=== PATIENT | male | born 1970 | race Caucasian/White ===

== ENCOUNTER 2016-07-27 22:34 | Observation (INO) | payer MEDICARE, OTHER ==
[~2016-07-27] VITALS: Ht 177.8 cm; Wt 75.0 kg
[2016-07-27 22:39] VITALS: BP 112/62; PULSE 92; RESP 16; TEMP 97.6; O2SAT 100
[2016-07-27] MEDS ORDERED: VENL150T PO (22:47)
[2016-07-27] MEDS ORDERED: TRAZ50TA12 PO (22:47)
[2016-07-27] MEDS ORDERED: NITR1SUB3 SL (22:47)
[2016-07-27] MEDS ORDERED: ASPI81CH CHEW (22:47)
[2016-07-27] MEDS ORDERED: ATOR40TA16 PO (22:47)
[2016-07-27] MEDS ORDERED: CARV6.252 PO (22:47)
[2016-07-27] MEDS ORDERED: ALPR1TAB3 PO (22:47)
[2016-07-27] MEDS ORDERED: ISOS30TA3 PO (22:47)
[2016-07-27] MEDS ORDERED: LISI40TA PO (22:47)
[2016-07-27 22:52] VITALS: BP 112/62; O2SAT 98
--- NOTE | 2016-07-27 22:55 | RADRPT ---
EXAM DATE/TIME: 07/27/2016 22:53 [facility] COMPARISON: No previous studies available for comparison. INDICATIONS : Chest pain tonight. MEDICAL HISTORY : Cardiovascular disease. SURGICAL HISTORY : Coronary artery stent. ENCOUNTER: Initial ACUITY: 1 day PAIN SCORE: 10/10 LOCATION: Bilateral chest FINDINGS: A single view of the chest demonstrates the lungs to be symmetrically aerated without evidence of mas s, infiltrate or effusion. The cardiomediastinal contours are unremarkable. Osseous structures are intact. CONCLUSION: No acute disease. Pablo Li MD on July 27, 2016 at 22:53 Board Certified Radiologist. This report was verified electronically.
[2016-07-27 23:05] LABS: AUTOMATED NEUTROPHIL # 5.8 TH/MM3 (1.8-7.7); BASOPHIL # 0.1 TH/MM3 (0-0.2); BASOPHIL % 0.9 % (0.0-2.0); EOSINOPHIL # 0.3 TH/MM3 (0-0.4); EOSINOPHIL % 2.9 % (0.0-4.0); HEMATOCRIT 39.5 % (39.0-51.0); HEMO FLAGS DIFF FINAL; LYMPH % 29.5 % (9.0-44.0); MEAN CELL VOLUME 94.6 FL (80.0-100.0); MEAN CORPUSCULAR HEMOGLOBIN 31.7 PG (27.0-34.0); MEAN CORPUSCULAR HGB CONC 33.5 % (32.0-36.0); MONO % 9.3 % (0.0-8.0); NEUT % 57.4 % (16.0-70.0); PLATELET COUNT 263 TH/MM3 (150-450); RED BLOOD COUNT 4.18 MIL/MM3 (4.50-5.90); RED CELL DISTRIBUTION WIDTH 14.3 % (11.6-17.2)
[2016-07-27 23:20] LABS: APTT (PATIENT) 29.3 SEC (24.3-30.1); INTERNATIONAL NORMALIZED RATIO 0.9 RATIO; PROTHROMBIN TIME - PATIENT 10.1 SEC (9.8-11.6)
[2016-07-27 23:23] LABS: ANION GAP 9 MEQ/L (5-15); BICARBONATE 23.9 MEQ/L (21.0-32.0); BLOOD UREA NITROGEN 13 MG/DL (7-18); CHLORIDE 98 MEQ/L (98-107); GLOMERULAR FILTRATION RATE 59 ML/MIN (>89); MAGNESIUM 2.3 MG/DL (1.5-2.5); POTASSIUM 3.9 MEQ/L (3.5-5.1); SODIUM (NA) 131 MEQ/L (136-145)
[2016-07-27] MEDS ORDERED: ASPIRIN 81 MG CHEW TAB ONE (23:25)
[2016-07-27] MEDS ORDERED: MORPHINE SULFATE 4 MG/ML INJ IV PUSH ONE (23:30)
[2016-07-27 23:34] LABS: CREATINE KINASE 81 U/L (39-308)
--- NOTE | 2016-07-27 23:36 | PD ---
HPI Chief Complaint: Chest Pain Time Seen by Provider: 22:43 Travel History International Travel<30 days: No Contact w/Intl Traveler<30days: No Traveled to known affect area: No History of Present Illness HPI 46-year-old male came to the emergency room with history of left-sided chest pain for past hour and a half. Patient is from [place] visiting family here. He says he has had 5 stents in the past the last one being in 2012. He is supposed be on Eliquis but has not taken it in past 2 months since his insurance does not cover it. He has been taking aspirin however. Patient is also a smoker and continues to smoke. Patient describes the pain to be 12 out of 10 sharp on the left side of his chest radiating to the back. No associated shortness of breath or syncopal episode. His vital signs were within normal limit in triage. Patient also showed me his right hand at the 3 middle fingers that were her and accidentally. He has some blisters and says it hurts. PFSH Past Medical History Narrative Medical List of his past medical, surgical, social and family history is reviewed from the nursing note. Anxiety: Yes Depression: Yes Cardiac Catheterization: Yes (5 STENTS ) Cardiovascular Problems: Yes (ME WITH 5 STENTS ) High Cholesterol: Yes Diminished Hearing: No Hypertension: Yes Myocardial Infarction: Yes Influenza Vaccination: Yes Past Surgical History Tonsillectomy: Yes Social History Alcohol Use: Yes (TODAY ) Tobacco Use: Yes (1/2 PPD ) Substance Use: No Allergies-Medications (Allergen,Severity, Reaction): Coded Allergies: No Known Allergies (Unverified , 07/27/16) Comments No known drug allergies. Reported Meds & Prescriptions Reported Meds & Active Scripts Active Reported Lisinopril 40 Mg Tab 40 Mg PO DAILY Atorvastatin (Atorvastatin Calcium) 40 Mg Tab 40 Mg PO HS Isosorbide Mononitrate ER (Isosorbide Mononitrate) 30 Mg Emery 30 Mg PO DAILY Trazodone (Trazodone HCl) 50 Mg Tab 50 Mg PO HS Carvedilol 6.25 Mg Tab 6.25 Mg PO BID Venlafaxine ER 24 HR (Venlafaxine HCl) 150 Mg Tab 150 Mg PO DAILY Nitroglycerin SL (Nitroglycerin) 0.4 Mg Subl 0.4 Mg SL DIRECTED PRN ONE TABLET UNDER THE TONGUE NEEDED FOR CHEST PAIN, MAY REPEAT EVERY FIVE MINUTES FOR A TOTAL OF 3 DOSES OR CALL 911 IF NO RELIEF Aspirin 81 Mg Chew 81 Mg CHEW DAILY Alprazolam 1 Mg Tab 1 Mg PO Q6H PRN Narrative Medication List of his home medications reviewed from the nursing note. Review of Systems Except as stated in HPI: all other systems reviewed are Neg Physical Exam Narrative GENERAL: Awake, intoxicated, no obvious distress SKIN: Focused skin assessment warm/dry. Right hand dorsum off second third and fourth finger superficial second-degree burn HEAD: Atraumatic. Normocephalic. EYES: Pupils equal and round. No scleral icterus. No injection or drainage. ENT: No nasal bleeding or discharge. Mucous membranes pink and moist. NECK: Trachea midline. No JVD. CARDIOVASCULAR: Regular rate and rhythm. No murmur appreciated. RESPIRATORY: No accessory muscle use. Clear to auscultation. Breath sounds equal bilaterally. GASTROINTESTINAL: Abdomen soft, non-tender, nondistended. Hepatic and splenic margins not palpable. MUSCULOSKELETAL: No obvious deformities. No clubbing. No cyanosis. No edema. NEUROLOGICAL: Awake and mildly intoxicated. No obvious cranial nerve deficits. Motor grossly within normal limits. Slurred speech. PSYCHIATRIC: Appropriate mood and affect; insight and judgment normal. Data Data Last Documented VS Vital Signs Date Time Temp Pulse Resp B/P Pulse Ox O2 Delivery O2 Flow Rate FiO2 07/28/16 00:41 104 16 106/61 97 07/27/16 22:52 Room Air 07/27/16 22:39 97.6 Orders Electrocardiogram (07/27/16 22:43) Basic Metabolic Panel (Bmp) (07/27/16 22:43) Ckmb (Isoenzyme) Profile (07/27/16 22:43) Complete Blood Count With Diff (07/27/16 22:43) Magnesium (Mg) (07/27/16 22:43) Prothrombin Time / Inr (Pt) (07/27/16 22:43) Act Partial Throm Time (Ptt) (07/27/16 22:43) Troponin I (07/27/16 22:43) Chest, Single Ap (07/27/16 22:43) Ecg Monitoring (07/27/16 22:43) Bilateral Bp Monitoring (07/27/16 22:43) Iv Access Insert/Monitor (07/27/16 22:43) Oximetry (07/27/16 22:43) Oxygen Administration (07/27/16 22:43) Aspirin Chew (Aspirin Chew) (07/28/16 09:00) Morphine Inj (Morphine Inj) (07/27/16 23:30) Aspirin Chew (Aspirin Chew) (07/27/16 23:25) Alcohol (Ethanol) (07/27/16 23:33) Aspirin Chew (Aspirin Chew) (07/28/16 00:30) Bacitracin Oint (Baciguent Oint) (07/28/16 00:30) Admit Order (Ed Use Only) (07/28/16 01:06) Labs Laboratory Tests Test 07/27/16 22:53 White Blood Count 10.0 TH/MM3 Red Blood Count 4.18 MIL/MM3 Hemoglobin 13.2 GM/DL Hematocrit 39.5 % Mean Corpuscular Volume 94.6 FL Mean Corpuscular Hemoglobin 31.7 PG Mean Corpuscular Hemoglobin 33.5 % Concent Red Cell Distribution Width 14.3 % Platelet Count 263 TH/MM3 Mean Platelet Volume 7.2 FL Neutrophils (%) (Auto) 57.4 % Lymphocytes (%) (Auto) 29.5 % Monocytes (%) (Auto) 9.3 % Eosinophils (%) (Auto) 2.9 % Basophils (%) (Auto) 0.9 % Neutrophils # (Auto) 5.8 TH/MM3 Lymphocytes # (Auto) 3.0 TH/MM3 Monocytes # (Auto) 0.9 TH/MM3 Eosinophils # (Auto) 0.3 TH/MM3 Basophils # (Auto) 0.1 TH/MM3 CBC Comment DIFF FINAL Differential Comment Prothrombin Time 10.1 SEC Prothromb Time International 0.9 RATIO Ratio Activated Partial 29.3 SEC Thromboplast Time Sodium Level 131 MEQ/L Potassium Level 3.9 MEQ/L Chloride Level 98 MEQ/L Carbon Dioxide Level 23.9 MEQ/L Anion Gap 9 MEQ/L Blood Urea Nitrogen 13 MG/DL Creatinine 1.31 MG/DL Estimat Glomerular Filtration 59 ML/MIN Rate Random Glucose 78 MG/DL Calcium Level 8.4 MG/DL Magnesium Level 2.3 MG/DL Total Creatine Kinase 81 U/L Troponin I LESS THAN 0.02 NG/ML Ethyl Alcohol Level 178 MG/DL MDM Medical Decision Making Medical Screen Exam Complete: Yes Emergency Medical Condition: Yes Medical Record Reviewed: Yes Interpretation(s) twelve-lead EKG was reviewed by me. Normal sinus rhythm, normal axis, nonspecific ST-T wave changes. Heart rate of 87 bpm. Differential Diagnosis ACS, non-STEMI, nonspecific chest pain Narrative Course 1 AM blood test results are back. Troponin is negative and chest x-rays negative. Patient does have high blood alcohol level. I've asked the nurse to do a bacitracin dressing for his fingers. Patient was given 4 mg of morphine IV. Given his risk factors I would like to admit him to the chest pain center to be ruled out. Procedures EKG Prior to Arrival: No Diagnosis Primary Impression: Chest pain Qualified Code: R07.9 - Chest pain, unspecified type Additional Impressions: Second degree burn of hand Qualified Code: T23.201A - Second degree burn of hand, right, initial encounter Alcohol intoxication Qualified Code: F10.120 - Alcohol intoxication, uncomplicated Admitting Information Admitting Physician Requests: Observation Nisreen Torres MD Jul 27, 2016 23:36
[2016-07-28] VITALS (8 sets, daily range): BP systolic 92–124; BP diastolic 52–67; PULSE 70–104; RESP 14–20; TEMP 98.2; O2SAT 96–100
[2016-07-28] MEDS ORDERED: ASPIRIN 81 MG CHEW TAB CHEW ONE (00:30)
[2016-07-28] MEDS ORDERED: BACITRACIN TOP OINT 15 GM TUBE TOPICAL ONE (00:30)
[2016-07-28] MEDS ORDERED: SODIUM CHLORIDE 0.9% FLUSH 10 ML FLUSH IV FLUSH PRN (03:15)
[2016-07-28] MEDS ORDERED: NITROGLYCERIN 0.4 MG SL 25 TABS/BTL SL PRN (03:15)
[2016-07-28] MEDS ORDERED: ACETAMINOPHEN 500 MG CPLT PO PRN (03:15)
[2016-07-28 04:01] LABS: CREATINE KINASE 61 U/L (39-308)
[2016-07-28 07:34] LABS: CREATINE KINASE 65 U/L (39-308)
--- NOTE | 2016-07-28 08:28 | HHI.HP ---
HPI Primary Care Physician Non-Staff Chief Complaint Chest pain History of Present Illness 46-year-old male with past coronary artery disease including 2 [place] (2005 & 2012 ) and 5 cardiac stents presents to the emergency room for further evaluation of intermittent chest discomfort. Onset 3 days ago. Location left anterior chest with radiation to his left arm. Pain occurs with exertion and without exertion. Duration generally last 20 minutes. Associated symptoms diaphoresis and shortness of breath. No nausea. Nothing makes pain better or worse. No known precipitating or relieving factors. He continues to smoke. 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 Review of Systems General: No fatigue,weakness, fever, chills, or recent illness. Has been in his general state of health. Recently moved from [place], has not established with a primary PCP. HEENT: No [place], no nasal congestion or drainage CV: As stated above. No current chest pain or pressure. No palpitations, intermittent leg pain, or dizziness. RESP: No SOB, cough, wheeze, recent URI. GI: No nausea, vomiting, bowel changes, diarrhea, constipation, pain, or distention. : No dysuria, urgency, frequency EXT: No lower leg edema, no paraesthesias MS: Chronic bilateral knee pain. No change in ROM NEURO: No change in memory, dizziness, difficulty with balance, LOC, motor/ sensory deficits PSYCH: No anxiety, depression, or suicidal ideation SKIN: No rashes, no concerning lesions Past Family Social History Allergies: Coded Allergies: No Known Allergies (Unverified , 07/27/16) Past Medical History Coronary artery disease, [place] 2, cardiac stents 5, hypertension, hyperlipidemia , depression, anxiety Past Surgical History Tonsillectomy Reported Medications Active Reported Lisinopril 40 Mg Tab 40 Mg PO DAILY Atorvastatin (Atorvastatin Calcium) 40 Mg Tab 40 Mg PO HS Isosorbide Mononitrate ER (Isosorbide Mononitrate) 30 Mg Emery 30 Mg PO DAILY Trazodone (Trazodone HCl) 50 Mg Tab 50 Mg PO HS Carvedilol 6.25 Mg Tab 6.25 Mg PO BID Venlafaxine ER 24 HR (Venlafaxine HCl) 150 Mg Tab 150 Mg PO DAILY Nitroglycerin SL (Nitroglycerin) 0.4 Mg Subl 0.4 Mg SL DIRECTED PRN ONE TABLET UNDER THE TONGUE NEEDED FOR CHEST PAIN, MAY REPEAT EVERY FIVE MINUTES FOR A TOTAL OF 3 DOSES OR CALL 911 IF NO RELIEF Aspirin 81 Mg Chew 81 Mg CHEW DAILY Alprazolam 1 Mg Tab 1 Mg PO Q6H PRN Active Ordered Medications Current Medications Medications (Trade) Dose Ordered Sig/Galo Route Start Time Stop Time Status Last Admin (Tylenol) 500 mg Q4H PRN PO 07/28/16 03:15 (Nitrostat Sl) 0.4 mg Q5M PRN SL 07/28/16 03:15 Social History No known diabetes, hypertension, hyperlipidemia. Tobacco use one half pack daily for most of his adult life. Endorses occasional alcohol. Denies illegal drug use. He is sedentary. Past cardiac testing No recent cardiac testing. Last cardiac catheterization in 2012. Patient does not have stent cards with him. Physical Exam Vital Signs Vital Signs Date Time Temp Pulse Resp B/P Pulse Ox O2 Delivery O2 Flow Rate FiO2 07/28/16 08:15 78 14 105/60 97 Room Air 07/28/16 06:42 70 16 92/52 98 07/28/16 04:28 96 16 105/65 96 07/28/16 03:56 97 21 07/28/16 02:40 80 14 106/53 100 07/28/16 00:41 104 16 106/61 97 07/27/16 22:52 98 Room Air 07/27/16 22:52 97 Room Air 07/27/16 22:52 112/62 07/27/16 22:39 97.6 92 16 112/62 100 Physical Exam GENERAL: Alert WN, WD, NAD, pleasant, male who appears older than stated age HEAD: NC, AT EYES: Sclera clear, conjunctiva without injection, pupils equal and round ENT: Mucous membranes pink and moist NECK: Supple, no masses, trachea midline CV: RRR, without murmur, rub, gallop, no JVD, S1-S2 no S3-S4. No carotid or femoral bruits RESP: Clear lungs throughout bilateral, prolonged expiratory phase, no crackles , wheeze, rhonchi, symmetrical chest rise, nonlabored, able to speak in full sentences ABD: Soft, NT, ND, no masses, positive bowel tones EXT: Pulses +24, no dependent edema MS: Normal tone 4 extremities, nontender, no obvious deformities, full range of motion NEURO: CN II through CN XII grossly intact, motor strength 5/5, gait WNL PSYCH: A+O 3, pleasant affect, appropriate speech, appropriate mood and affect , insight and judgment SKIN: Normal turgor, normal texture, no lesions, no rashes, brisk cap refill, even hair distribution Laboratory Laboratory Tests Test 07/27/16 07/28/16 07/28/16 22:53 03:20 06:20 White Blood Count 10.0 Red Blood Count 4.18 Hemoglobin 13.2 Hematocrit 39.5 Mean Corpuscular Volume 94.6 Mean Corpuscular Hemoglobin 31.7 Mean Corpuscular Hemoglobin 33.5 Concent Red Cell Distribution Width 14.3 Platelet Count 263 Mean Platelet Volume 7.2 Neutrophils (%) (Auto) 57.4 Lymphocytes (%) (Auto) 29.5 Monocytes (%) (Auto) 9.3 Eosinophils (%) (Auto) 2.9 Basophils (%) (Auto) 0.9 Neutrophils # (Auto) 5.8 Lymphocytes # (Auto) 3.0 Monocytes # (Auto) 0.9 Eosinophils # (Auto) 0.3 Basophils # (Auto) 0.1 CBC Comment DIFF FINAL Differential Comment Prothrombin Time 10.1 Prothromb Time International 0.9 Ratio Activated Partial 29.3 Thromboplast Time Sodium Level 131 Potassium Level 3.9 Chloride Level 98 Carbon Dioxide Level 23.9 Anion Gap 9 Blood Urea Nitrogen 13 Creatinine 1.31 Estimat Glomerular Filtration 59 Rate Random Glucose 78 Calcium Level 8.4 Magnesium Level 2.3 Total Creatine Kinase 81 61 65 Troponin I LESS THAN 0.02 LESS THAN 0.02 LESS THAN 0.02 Ethyl Alcohol Level 178 Result Diagram: 07/27/16225207/27/162252 Imaging Last Impressions Chest X-Ray 07/27/162242 Signed Impressions: Service Date/Time: Wednesday, July 27, 2016 22:53 - CONCLUSION: No acute disease. Pablo Li MD Course EKGs 3 EKGs normal sinus rhythm, normal axis, no ST or T-segment changes Assessment and Plan Assessment and Plan #1 Chest painadmitted to chest pain center. Ruled out with 3 sets of EKGs, cardiac enzymes, and monitor throughout evening. Was seen and evaluated by Dr. Maxx Brown. Plan to complete an exercise stress test however patient declined saying he is unable to walk on treadmill therefore will order a chemical stress test. #2 CAD-continue isosorbide, carvedilol, and aspirin. In regards to his Effient , no need to restart as last stent placed in 2012. #3 Tobacco use-counseled and educated on effects of tobacco. Encouraged him to quit smoking. #4 Hypertensioncontinue lisinopril Alison Andujar Jul 28, 2016 08:28 Alison Andujar Jul 28, 2016 08:28
[2016-07-28] MEDS ORDERED: ASPIRIN 81 MG CHEW TAB CHEW SCH (09:00)
[2016-07-28] MEDS ORDERED: SODIUM CHLORIDE 0.9% FLUSH 10 ML FLUSH IV FLUSH SCH (09:00)
[2016-07-28] MEDS ORDERED: REGADENOSON INJ 0.4 MG/5 ML SYR ONE (11:32)
[2016-07-28] MEDS ORDERED: LISINOPRIL 20 MG TAB PO SCH (12:45)
[2016-07-28] MEDS ORDERED: VENLAFAXINE HCL XR 75 MG CAP PO SCH (13:00)
[2016-07-28] MEDS ORDERED: CARVEDILOL 6.25 MG TAB PO SCH (13:00)
[2016-07-28] MEDS ORDERED: ISOSORBIDE MONONITRATE 30 MG TAB PO SCH (13:00)
--- NOTE | 2016-07-28 15:06 | RADRPT ---
EXAM DATE/TIME: 07/28/2016 11:20 [facility] COMPARISON: No previous studies available for comparison. INDICATIONS : Angina. DOSE: 8.5 mCi Tc99m Myoview at stress. 27.3 mCi Tc99m Myoview at rest. 0.4 mg Lexiscan STRESS SYMPTOMS: Dyspnea and lightheaded. EJECTION FRACTION: > 70% MEDICAL HISTORY : Hypertension. Hypercholesterolemia. Myocardial infarction. SURGICAL HISTORY : Tonsillectomy. Angioplasty. ENCOUNTER: Initial ACUITY: 1 day PAIN SCALE: 2/10 LOCATION: Left chest TECHNIQUE: The patient underwent pharmacologic stress with infusion of prescribed dose. Continuous ECG tracing was monitored during stress. Gated SPECT imaging was performed after stress and conventional SPECT i maging was performed at rest. The examination was performed on a SPECT/CT scanner, both attenuation and non-corrected datasets were reviewed. FINDINGS: The best perfused myocardium is the lateral wall followed by the inferior wall. Moderate gut activity does obscure the inferior wall. There is normal wall motion with ejection fraction of greater than 70%. There is no redistribution t o suggest stress-induced ischemia. CONCLUSION: Negative for stress-induced ischemia. RISK CATEGORY: Low (<1% Annual Mortality Rate) Jairo Randolph MD FACR on July 28, 2016 at 14:59 Board Certified Radiologist. This report was verified electronically.
--- NOTE | 2016-07-28 15:16 | HHI.DCPOC ---
Discharge Care Plan Diagnosis: (1) Atypical chest pain (2) Hx of coronary artery disease Goals to Promote Your Health * To prevent worsening of your condition and complications * To maintain your health at the optimal level Directions to Meet Your Goals Take your medications as prescribed Follow your dietary instruction Follow activity as directed Keep your appointments as scheduled Take your immunizations and boosters as scheduled If your symptoms worsen call your PCP, if no PCP go to Urgent Care Center or Emergency Room Smoking is Dangerous to Your Health. Avoid second hand smoke Call the 24-hour hour crisis hotline for domestic abuse at Alison Andujar Jul 28, 2016 15:16
--- NOTE | 2016-07-28 16:55 | EKG ---
Date Performed: 07/28/2016 Time Performed: 06:23:44 PTAGE: 46 years EKG: Sinus rhythm NORMAL ECG PREVIOUS TRACING : 07/28/2016 03.22 Since previous tracing, no significant change noted DOCTOR: Maxx Brown Interpretating Date/Time 07/28/2016 16:54:01
--- NOTE | 2016-07-28 16:56 | EKG ---
Date Performed: 07/28/2016 Time Performed: 03:22:14 PTAGE: 46 years EKG: Sinus rhythm NORMAL ECG NO PREVIOUS TRACING DOCTOR: Maxx Brown Interpretating Date/Time 07/28/2016 16:55:27
--- NOTE | 2016-07-28 16:57 | EKG ---
Date Performed: 07/27/2016 Time Performed: 22:37:05 PTAGE: 46 years EKG: Sinus rhythm NORMAL ECG NO PREVIOUS TRACING DOCTOR: Maxx Brown Interpretating Date/Time 07/28/2016 16:56:13
--- NOTE | 2016-07-28 17:00 | TR ---
Date Performed: 07/28/2016 Time Performed: 12:06:43 DOCTOR: Maxx Brown DRUG LIST: CLINICAL HISTORY: REASON FOR TEST: REASON FOR ENDING: OBSERVATION: CONCLUSION: Lexiscan stress test was performed under standard four minute protocol. Radionuclid e was injected one minute prior to ending the test. No electrocardiographic abormalities were present to suggest ischemia. Nuclear imaging and interpretation are pending. COMMENTS:
[2016-07-28] MEDS ORDERED: ATORVASTATIN 40 MG TAB PO SCH (21:00)
== END 2016-07-28 18:31 | disposition home or self-care (01) ==
LOC: NEPC 22:34 → NEDA 07-28 01:07 → NEDH 07-28 05:07 → NEDA 07-28 10:53 → NEPGCP 07-28 13:09
PROVIDERS: ADMIT Internal Medicine Interventional Cardiology; ATTEND Internal Medicine Interventional Cardiology
DX: R07.9 Chest pain, unspecified (principal); F17.210 Nicotine dependence, cigarettes, uncomplicated; I25.2 Old myocardial infarction; E78.00 Pure hypercholesterolemia, unspecified; I10 Essential (primary) hypertension; Z79.899 Other long term (current) drug therapy; F10.120 Alcohol abuse with intoxication, uncomplicated; T23.231A Burn of second degree of multiple right fingers (nail), not including thumb, initial encounter; Z95.5 Presence of coronary angioplasty implant and graft; I25.10 Atherosclerotic heart disease of native coronary artery without angina pectoris; R06.02 Shortness of breath; R61 Generalized hyperhidrosis
CPT/HCPCS: 71010; 78452; 80048; 80307; 82550; 83735; 84484; 85025; 85610; 85730; 93005; 93017; 96374; 99285; A9502; G0378; J2270; J2785